=== PATIENT | male | born 1945 | race Caucasian/White ===

== ENCOUNTER → 2018-07-04 11:13 | Day surgery (SDC) | payer MEDICARE, BC ==
[~2018-07-04 11:13] MED LIST: Acetaminophen TAB* 325 MG PO PRN; Buffered Lidocaine 0.9% SYRIN* 5 ML/SYR SYRINGE INTRADERM ONE; Bupivacaine 0.25% SDV PF* 10 ML VIAL INJ ONE; Ibuprofen TAB* 600 MG PO PRN; Midazolam* 1 MG/ML 2 ML VIAL (2 MG) ONE; Naloxone* 0.4 MG/ML 1 ML VIAL IV PRN; Ondansetron INJ* 2 MG/ML VIAL IV PRN; Propofol* 10 MG/ML 20 ML BTL ONE; ceFAZolin 2 GM PREMIX in ORs 2 GM/50 ML BAG IVPB ONE; fentaNYL* 50 MCG/ML 2 ML VIAL (100 MCG VIAL) IV PRN; fentaNYL* 50 MCG/ML 2 ML VIAL (100 MCG VIAL) ONE; oxyCODONE/Acetamin 5/325 MG* TAB PO PRN
[2018-07-04 16:34] VITALS: BP 133/78
--- NOTE | 2018-07-05 04:47 | OP ---
DATE OF OPERATION: 07/04/18 - [facility] DATE OF : 45 SURGEON: Carloz Zaman MD EMERGENCY PREPAREDNESS MANAGER: TI Art. An assistant facility manager was needed to aid in positioning of the arm and retraction of the flaps. ANESTHESIOLOGIST: Dr. Haley. ANESTHESIA: Local MAC. PRE-OP DIAGNOSES: 1. Extensive left palm Dupuytren's tissue with central cords in line with the middle and ring fingers. 2. Left ring trigger finger. POST-OP DIAGNOSES: 1. Extensive left palm Dupuytren's tissue with central cords in line with the middle and ring fingers. 2. Left ring trigger finger. OPERATIVE PROCEDURE: 1. Excision of Dupuytren's tissue, left palm. 2. Left ring trigger finger release. INDICATIONS: Oz has a chronic left ring trigger finger that caused him discomfort and stiffness. I gave him a steroid injection and the pain got much better. However, it is still very stiff and he is unable to make a full fist. He has significant Dupuytren's tissue with dimpling and contracture throughout the palm. We had talked about risks and benefits and he had wanted to proceed. ESTIMATED BLOOD LOSS: 2 mL. COMPLICATIONS: None. FINDINGS: See above and below. DESCRIPTION OF PROCEDURE: Oz was seen in the preoperative holding area. The correct site, side, and procedure were identified. We came back to the operating room. The arm was prepped and draped in the usual fashion and a time- out was performed. The arm was exsanguinated with the Esmarch and the tourniquet inflated to 250 mmHg. I began by making 2 Marimar incisions, one over the ring finger ray and one over the middle finger. Dissection was carried down and full-thickness flaps were raised off the Dupuytren's cords. The ring finger definitely had the more prominent central cord. The middle finger had a prominent one but it was smaller on the middle finger and I released the central cord proximally and then dissected down distally releasing the vertical septi which were involved. The cord inserted on to the A1 shemar, this was released off the A1 shemar and handed off as a specimen. Once I confirmed that all the Dupuytren's tissue was excised, we turned our attention to the ring finger. I then came to the ring finger and I released the central cord proximally. Again, I worked from distal to proximal releasing the vertical septi taking great care to preserve the radial and ulnar neurovascular bundles. The dissection was carried down all the way to the A1 shemar where the cord was inserting. The cord was released off the A1 shemar and a very large cord was handed off as a specimen. I then had a great view of the A1 shemar and so I went ahead and released the shemar in its entirety longitudinally along the radial third of the shemar. At this point, there was no Dupuytren's tissue remaining and the finger was nice to release, so we irrigated out the wound. The skin flaps were was closed with 4-0 nylon suture. A well-padded splint was applied terminating at the distal palm just to apply some gentle compression onto our wounds, but allowing the fingers to freely flex and extend. After the skin was closed, the hand pinked up immediately. After the splint was applied, he was taken to the recovery room in stable condition. [id number] #: [id number] MICHELLE
== END | disposition home or self-care (01) ==
LOC: OR 11:13
PROVIDERS: ATTEND Orthopaedic Surgery Hand Surgery
DX: M72.0 Palmar fascial fibromatosis [Dupuytren] (principal); M65.342 Trigger finger, left ring finger; I10 Essential (primary) hypertension; Z86.711 Personal history of pulmonary embolism; Z87.891 Personal history of nicotine dependence
CPT/HCPCS: 88304; J0690; J2250; J2704; J3010; J3490